=== PATIENT | male | born 1995 | race African-American/Black ===

== ENCOUNTER 2024-02-20 21:56 | Emergency (ER) | payer OTHER ==
[~2024-02-20] VITALS: Ht 182.9 cm; Wt 79.7 kg
[2024-02-20 22:08] VITALS: BP 133/94; TEMP 98.4; O2SAT 99
[2024-02-20 22:12] VITALS: PULSE 60; O2SAT 99
[2024-02-20] MEDS ORDERED: AMOX1TAB16 PO (22:16)
[2024-02-20] MEDS ORDERED: TOPUD PO (22:16)
[2024-02-20 22:35] VITALS: RESP 18
== END 2024-02-20 22:35 | disposition home or self-care (01) ==
LOC: ER 21:56
DX: J02.8 Acute pharyngitis due to other specified organisms (principal)
CPT/HCPCS: 87430; 99283

== ENCOUNTER 2024-04-26 10:47 | Emergency (ER) | payer OTHER ==
[~2024-04-26] VITALS: Ht 182.9 cm; Wt 82.0 kg
[~2024-04-26 10:47] MED LIST: AMOX1TAB16 PO; TOPUD PO
[2024-04-26 10:59] VITALS: BP 133/76; PULSE 80; RESP 16; TEMP 98.3; O2SAT 98; O2SAT 99
[2024-04-26] MEDS ORDERED: ACYC200C31 MT (12:31)
== END 2024-04-26 12:23 | disposition home or self-care (01) ==
LOC: ER 10:47
DX: B00.1 Herpesviral vesicular dermatitis (principal)
CPT/HCPCS: 99283